=== PATIENT | female | born 1965 | race Caucasian/White ===

== ENCOUNTER 2019-02-16 09:45 | Day surgery (SDC) | payer BC ==
[~2019-02-16] VITALS: Ht 165.1 cm; Wt 63.6 kg
[~2019-02-16 09:45] MED LIST: ADVANCED PROBI625 MG PO; CHOL10002 PO; CYCL10; EUTHYROX75 MCG PO; FISH1000 PO; HYDACE10B PO; META800 PO; NAPR500 PO; Percocet 5-3251 EACH; SERT100; SERT50; SERT50 PO; SUPER B-COMPL400 MCG PO; THYR60; VITAMIN D35000 UNIT PO; WOMEN'S DAILY1 EAC1 PO
== END 2019-02-16 12:40 | disposition home or self-care (01) ==
LOC: ORSCSDS 09:45
PROVIDERS: Orthopaedic Surgery
PROC: 0SBC4ZZ Excision of Right Knee Joint, Percutaneous Endoscopic Approach (ICD-10-PCS; principal; 2019-02-16 11:10)
DX: M23.206 Derangement of unspecified meniscus due to old tear or injury, right knee (principal); M17.11 Unilateral primary osteoarthritis, right knee; M71.21 Synovial cyst of popliteal space [Baker], right knee; I10 Essential (primary) hypertension; E03.9 Hypothyroidism, unspecified; Z86.010 Personal history of colon polyps
CPT/HCPCS: J0171; J0690; J1100; J1885; J2250; J2405; J2704; J2795; J3010

== ENCOUNTER 2019-11-10 08:54 | Day surgery (SDC) | payer BC ==
[~2019-11-10] VITALS: Ht 317.5 cm; Wt 61.5 kg
[~2019-11-10 08:54] MED LIST changes: +ASCO500 PO; +BISA5EC PO; +COLLAGEN PO; +NATURAL CALM MAG PO; +PROBIOTIC PO; +[UNRECOGNIZED DRUG - OTHER] PO
[2019-11-10] MEDS ORDERED: MIRALAX17 GM PO (09:22)
--- NOTE | 2019-11-10 09:44 | NUR ---
Ambulatory in Day Surgery History, Chart, Medications and Allergies reviewed before start of procedure.Patient confirms NPO status and agrees with scheduled surgery. Patient reports completing Chlorhexadine shower X2 prior to admission to hospital.Surgical site prepped with 2% Chlorhexidine cloth wipe. Lungs clear T/O to Auscultation. PT GLASSES AND PERSONAL BAG WILL BE TAKEN TO PACU
--- NOTE | 2019-11-10 12:55 | NUR ---
11/10/19 1255 Silvana Kuhn all counts correct.
--- NOTE | 2019-11-10 14:37 | NUR ---
pt reports sudden sharp pain in chest, requests sprite as feels it may be trapped gas
--- NOTE | 2019-11-10 18:42 | NUR ---
SUMMARY PT AMBULATED TO AND VOIDED CLEAR YELLOW URINE, AMBULATED IN HALLWAY WITH STANDBY ASSIST AND REPORTS PAIN IS WELL CONTROLLED AT 3/10 AFTER ACTIVITY. EPISODE OF CHEST AREA PAIN RESOLVED AFTER DRANK MARYAM MIST AND BELCHED-PT FEELS WAS MOST LIKELY GAS PAINS. PT SITTING IN CHAIR WITH POLAR PACK IN PLACE. RIGHT KNEE DRESSING CLEAN AND DRY
--- NOTE | 2019-11-11 01:55 | NUR ---
HAND OFF GIVEN TO Bolivar ALEJO RN USING JARREDAR.
--- NOTE | 2019-11-11 02:22 | NUR ---
ASSUMED CARE OF PT. REPORT REC FROM GABY Nolasco RN. PT AWAKE IN BED, NO DISTRESS NOTED. PT REP PAIN DEAN, RLE ELEVATED/REMAINED STRAIGHT. PT DOING ROM EXERCISES IN BED. DRESSING CDI. WILL CONT TO MEDICATE AND TX PER ORDERS.
[2019-11-11 03:53] LABS: BASOPHILS ABSOLUTE AUTO 0.01 K/mm3 (0.00-0.23); BASOPHILS PERCENT AUTO 0 % (0-2); EOSINOPHILS ABSOLUTE AUTO 0.02 K/mm3 (0.00-0.68); EOSINOPHILS PERCENT AUTO 0 % (0-6); Hematocrit 37.4 % (33.0-51.0); Hemoglobin 11.8 g/dL (11.5-16.0); IMMATURE GRAN ABSOLUTE AUTO 0.03 K/mm3 (0.00-0.10); IMMATURE GRAN PERCENT AUTO 0 % (0-1); LYMPHOCYTES ABSOLUTE AUTO 0.85 K/mm3 (0.84-5.20); LYMPHOCYTES PERCENT AUTO 11 % (21-46); MONOCYTES ABSOLUTE AUTO 0.62 K/mm3 (0.16-1.47); MONOCYTES PERCENT AUTO 8 % (4-13); Mean Corpuscular HGB 28.1 pg (26.0-34.0); Mean Corpuscular HGB Conc 31.6 g/dL (31.5-36.5); Mean Corpuscular Volume 89 fL (80-100); Mean Platelet Volume 10.6 fL (9.1-12.4); NEUTROPHILS ABSOLUTE AUTO 6.41 K/mm3 (1.96-9.15); NEUTROPHILS PERCENT AUTO 81 % (41-73); Platelet Count 150 K/mm3 (150-400); RDW Coefficient Variation 12.6 % (11.7-14.2); RDW Standard Deviation 41.1 fL (35.1-46.3); White Blood Cell Count 7.94 K/mm3 (4.00-11.30)
[2019-11-11 04:07] LABS: Anion Gap 4 mmol/L (6-16); Blood Urea Nitrogen 8 mg/dL (8-24); Bun/Creatinine Ratio 12.2 (12.0-20.0); CO2, Blood 29 mmol/L (21-32); Calcium, Blood 8.8 mg/dL (8.5-10.1); Chloride, Blood 110 mmol/L (98-108); Creatinine, Blood 0.66 mg/dL (0.40-1.00); Glomerular Filtration Rate >60 (60-); Glucose, Blood 133 mg/dL (70-99); Magnesium, Blood 1.9 mg/dL (1.6-2.4); Potassium, Blood 3.9 mmol/L (3.5-5.5); Sodium, Blood 143 mmol/L (136-145)
[2019-11-11] MEDS ORDERED: AMOCLA875 PO (09:43)
[2019-11-11] MEDS ORDERED: ASPI325 PO (09:44)
[2019-11-11] MEDS ORDERED: PROM25 PO (09:46)
[2019-11-11] MEDS ORDERED: OXYC5 PO (09:46)
--- NOTE | 2019-11-11 10:40 | NUR ---
DISCHARGE PT CLEARED THERAPY. EATING, DRINKING, VOIDING WELL. PAIN WELL MANAGED. DRSGS AND POLAR PACK GIVEN. DENIES FURTHER NEEDS OR CONCERNS.
== END 2019-11-11 11:00 | disposition home or self-care (01) ==
LOC: ORSCMMR 08:54 → ORD 10:30 → ORSCMMR 10:30 → SURS 13:37 → ORSCMMR 11-11 11:00
PROVIDERS: Orthopaedic Surgery
PROC: 0SRC0J9 Replacement of Right Knee Joint with Synthetic Substitute, Cemented, Open Approach (ICD-10-PCS; principal; 2019-11-10 10:30)
PROC: 8E0YXBZ Computer Assisted Procedure of Lower Extremity (ICD-10-PCS; principal; 2019-11-10 10:30)
DX: M17.11 Unilateral primary osteoarthritis, right knee (principal); I10 Essential (primary) hypertension; E03.9 Hypothyroidism, unspecified; Z79.899 Other long term (current) drug therapy
CPT/HCPCS: 36415; 73560-RT; 80048; 83735; 85025; 88300; 90670; 97110; 97116; 97162; 97530; C1713; C1776; J0171; J0690; J0735; J1100; J1885; J2250; J2405; J2704; J2795; J3010; J3370; J7120